=== PATIENT | female | born 1935 | race Caucasian/White ===

== ENCOUNTER → 2024-01-04 14:58 | Outpatient (REF) | payer MEDICARE, SELFPAY | LOC: RAD 14:58 | PROVIDERS: ATTENDING PHYSICIAN Internal Medicine | DX: R10.84 Generalized abdominal pain (principal) | CPT/HCPCS: 74177; Q9967 ==

== ENCOUNTER → 2024-02-05 12:49 | Outpatient (REF) | payer MEDICARE, SELFPAY | LOC: RCS 12:49 | PROVIDERS: ATTENDING PHYSICIAN Internal Medicine | DX: R55 Syncope and collapse (principal) | CPT/HCPCS: 93225; 93226 ==

== ENCOUNTER 2024-09-04 10:18 | Emergency (ER) | payer MEDICARE, SELFPAY ==
[2024-09-04 10:19] VITALS: BP 103/59
--- NOTE | 2024-09-04 10:58 | ED.GENMED ---
History of Present Illness
General
Chief Complaint: Musculo-Skeletal Complaint
Time Seen by Provider: 09/04/24 10:58
History of Present Illness
History of Present Illness:
TIME OF INITIAL ENCOUNTER: 11 AM
HPI:
The patient has been having some discomfort and rash in the left low back that radiates around the top of the left thigh over the last several months. She has seen a primary care doctor without a clear explanation. The pain worsened and she
describes a burning sensation to the thigh.
EXAM:
GENERAL: Well appearing but appears somewhat uncomfortable
HEENT: Moist oral mucosa
NEUROLOGIC: Excellent strength all extremities, no obvious coordination deficits
PSYCHIATRIC: Appropriate mental status, normal insight and judgement
EXTREMITIES: Nontender, no edema, moves all extremities equally
SKIN: Rash consistent with shingles in a left-sided L1/L2 distribution
NUMBER AND COMPLEXITY OF PROBLEMS ADDRESSED AT THE ENCOUNTER
� Chronic conditions affecting care: Denies any significant past medical history
� Acute Exacerbation and/or Progression of Chronic Illness: This is an acute problem
� Differential Diagnosis includes: Shingles, dermatitis, eczema, viral syndrome, allergies
AMOUNT AND/OR COMPLEXITY OF DATA TO BE REVIEWED AND ANALYZED
� I performed an independent evaluation of and my interpretation is:
EKG:
CT:
X-rays:
Laboratory Studies:
Other:
� Review of other/old records: The patient had Holter monitoring earlier this year
� Clinical information was obtained by an independent historian: Spoke to the at bedside
� Prescriptions/Medications Considered but not given:
� Further testing considered but not performed:
RISK OF COMPLICATIONS AND/OR MORBIDITY OR MORTALITY OF PATIENT MANAGEMENT
� Social determinants of health affecting care: Lives at home
� Discussion with other providers:
� Escalation of care including admission/observation vs risk of discharge considered: Rashes consistent with shingles. I suspect she has a postherpetic neuralgia. I informed patient Valtrex likely to be of much benefit but we
can try. Will try prednisone and Neurontin for pain.
ANY OTHER UPDATES:
Phy Exam
Physical Exam
Physical Exam:
See HPI
Course
Orders/Labs/Results
Orders:
Orders
09/04/24 10:22
Urinalysis Reflex To Culture Urgent
Date Specimen was Collected: 09/04/24
Time Specimen was Collected: 10:23
09/04/24 10:34
CMP [Comprehensive Metabolic Panel] Urgent
Complete Blood Count/With Diff Urgent
Abnormal Lab Results
09/04/24
10:34
WBC 2.6 L 10^3/uL
(4.8-10.8)
RBC 3.94 L 10^6/uL
(4.20-5.40)
MCH 31.7 H pg
(27.0-31.0)
Plt Count 123 L 10^3/uL
(130-400)
MPV 11.5 H fL
(7.4-10.4)
Absolute Neuts (auto) 1.2 L 10^3/uL
(1.4-6.5)
Absolute Lymphs (auto) 1.0 L 10^3/uL
(1.2-3.4)
Monocytes % 12.9 H %
(1.7-9.3)
BUN 21 H mg/dl
(7-17)
Glucose 101 H mg/dl
(70-99)
09/04/24 10:34
09/04/24 10:34
Vital Signs
Initial and Last Documented VS:
Initial Vital Signs
Temp Pulse Resp BP Pulse Ox
98.3 F 66 18 103/59 97
09/04/24 10:19 09/04/24 10:19 09/04/24 10:19 09/04/24 10:19 09/04/24 10:19
Last Documented Vital Signs
Temp Pulse Resp BP Pulse Ox
98.3 F 66 18 103/59 97
09/04/24 10:19 09/04/24 10:19 09/04/24 10:19 09/04/24 10:19 09/04/24 10:19
*Critical Care Note
Total Time (30-74mins, 75-104mins- exclusive of procedures): Not Applicable
ED Attending Note
-
Portions of this chart may have been created with voice recognition software.� Occasional wrong word or��sound alike� substitutions may have occurred due to the inherent limitations of voice recognition software.
Discharge Plan
Departure
Patient Disposition: Home (Routine Discharge)
Date of Disposition: 09/04/24
Time of Disposition: 11:09
Patient with high blood pressure during this ER visit?: Yes
Discharge Problem:
HZV (herpes zoster virus) post herpetic neuralgia
Instructions: Shingles
Prescriptions:
New
prednisone 20 mg tablet
20 mg PO DAILY Qty: 5 0RF
gabapentin [Neurontin] 100 mg capsule
100 mg PO TID Qty: 21 0RF
valacyclovir [Valtrex] 1 gram tablet
1,000 mg PO TID 7 Days Qty: 21 0RF
Activity Restrictions/Additional Instructions:
Your symptoms appear to be related to shingles. Shingles can take a long time to heal. We can try Valtrex (antiviral) but this likely will not help much as her symptoms have been going on for a long time. For the pain, we can try a short course
of steroids as well as Neurontin. I sent these prescriptions to your pharmacy.
Discharge Date and Time
Print Language: SETSWANA
[2024-09-04 10:59] LABS: ALT (SGPT) 20 U/L (0-35); AST (SGOT) 25 U/L (14-36); Alkaline Phosphatase 65 U/L (38-126); Blood Urea Nitrogen 21 mg/dl (7-17); Calcium 9.2 mg/dl (8.4-10.2); Carbon Dioxide 30 mmol/L (22-30); Chloride 103 mmol/L (98-107); Glucose 101 mg/dl (70-99); Potassium 4.3 mmol/L (3.5-5.1); Sodium 140 mmol/L (135-145); Total Bilirubin 0.3 mg/dl (0.2-1.3); Total Protein 6.6 g/dl (6.3-8.2); eGFR > 60.00
[2024-09-04 11:14] LABS: % Basophils 0.4 % (0-2); % Eosinophils 0.4 % (0-6); % Lymphocytes 39.2 % (20.5-51.1); % Monocytes 12.9 % (1.7-9.3); % Neutrophils 47.1 % (42.2-75.2); Absolute Monocytes 0.3 10^3/uL (0.1-0.6); Absolute Neutrophils 1.2 10^3/uL (1.4-6.5); Hematocrit 37.9 % (37.0-47.0); Hemoglobin 12.5 g/dL (12.0-16.0); Mean Corpuscular Hgb 31.7 pg (27.0-31.0); Mean Corpuscular Volume 96.2 fL (81.0-99.0); Mean Platelet Volume 11.5 fL (7.4-10.4); Nucleated Red Blood Cells % 0 %; Platelet Count 123 10^3/uL (130-400); Red Blood Cell Count 3.94 10^6/uL (4.20-5.40); Red Cell Dist. Width 12.7 % (11.5-14.5); White Blood Cell Count 2.6 10^3/uL (4.8-10.8)
== END 2024-09-04 11:26 | disposition home or self-care (01) ==
LOC: EMR 10:18
PROVIDERS: EMERGENCY PHYSICIAN Emergency Medicine; FAMILY PHYSICIAN Internal Medicine
DX: B02.9 Zoster without complications (principal); B02.29 Other postherpetic nervous system involvement; M54.50 Low back pain, unspecified; R03.0 Elevated blood-pressure reading, without diagnosis of hypertension
CPT/HCPCS: 99283; 80053; 85025

== ENCOUNTER → 2024-10-09 09:39 | Outpatient (REF) | payer MEDICARE, SELFPAY | LOC: RAD 09:39 | PROVIDERS: ATTENDING PHYSICIAN Internal Medicine | DX: R10.32 Left lower quadrant pain (principal) | CPT/HCPCS: 74177; Q9967 ==

== ENCOUNTER 2024-12-03 06:32 | Outpatient (RCR) | payer SELFPAY | END 2024-12-03 23:59 | disposition home or self-care (01) | LOC: ROT 06:32 | PROVIDERS: ATTENDING PHYSICIAN Hospitalist | DX: Z02.4 Encounter for examination for driving license (principal) ==

== ENCOUNTER 2025-03-20 09:07 | Emergency (ER) | payer OTHER, SELFPAY ==
[2025-03-20 09:08] VITALS: BP 134/69
[2025-03-20 09:25] VITALS: BMI 23.8
[2025-03-20 09:34] VITALS: BP 152/63
--- NOTE | 2025-03-20 09:36 | ED.GENMED ---
History of Present Illness
General
Chief Complaint: Bowel Problem
Source: patient
Exam Limitations: none
Time Seen by Provider: 03/20/25 09:18
Nursing documentation reviewed up to this point in time: agreed with
History of Present Illness
History of Present Illness:
Patient is a 89-year-old female who presents to the ER for evaluation. She reports for the past several months she has been constipated and has had abdominal pain. She does report that her stools have been dark. She has however used intermittent
Pepto-Bismol. She has lost approximate 20 pounds over the past several months. She still reports a good appetite. She denies any associated nausea or fevers. She denies any urinary frequency urgency or dysuria.
Review of Systems
Review of Systems
Allergies reviewed?: Yes
Other source history: family
All Other Systems: ROS reviewed and negative except as documented in HPI and ROS
Constitutional: Reports no symptoms; Denies fever
Respiratory: Reports no symptoms
Cardiac: Reports no symptoms
ABD/GI: Reports abdominal pain and constipated; Denies nausea, vomiting or diarrhea
: Reports no symptoms
Musculoskeletal: Reports no symptoms
Skin: Reports no symptoms
Neurological: Reports no symptoms
Hematologic/Lymphatic: Reports no symptoms
Psychiatric: Reports no symptoms
Phy Exam
General Physical Exam
General Presentation: no apparent distress
General age: appears stated age
General Skin: warm and dry
General Habitus: elderly
General Mental: alert
General Hydration: appears well hydrated
Cardiovascular Exam
Cardiovascular Exam: regular rate/rhythm, no murmur and normal peripheral pulses
Pulmonary Exam
Pulmonary Exam: lungs clear and no respiratory distress
Gastrointestinal Exam
Gastrointestinal Exam: non tender, soft and other (+ darker brown (greenish ) stool heme negative , no impaction of stool in the rectum ( no solid stool felt on digital rectal exam ) )
Neurological Exam
Neurological Exam: alert and oriented x3
Musculoskeletal Exam
Musculoskeletal Exam: full ROM
Skin Exam
Skin Exam: normal color and warm/dry
Psychiatric Exam
Psychiatric Exam: normal mood/affect
Course
Orders/Labs/Results
Orders:
Orders
03/20/25 09:33
IV Insert/Care/Rem.- Treatment PRN
03/20/25 09:37
Complete Blood Count/With Diff Urgent
Comprehensive Metabolic Panel Urgent
Lipase Urgent
Comment: ADD ON
03/20/25 10:36
CT Abd/pel W Iv And Oral Contr Urgent
Comment:
Reason For Exam: abd pain/constipation
Iohexol [Omnipaque] See Protocol PO NOW STA
03/20/25 10:37
Add On- LAB Urgent
Tests Added?: lipase
0.9% Sodium Chloride 500 ml [Nss] 500 ml IV BOLUS
03/20/25 11:11
UA Reflex to Culture [Urinalysis Reflex To Culture] Urgent
Date Specimen was Collected: 03/20/25
Time Specimen was Collected: 11:07
Abnormal Lab Results
03/20/25
09:37
WBC 4.7 L 10^3/uL
(4.8-10.8)
RBC 3.91 L 10^6/uL
(4.20-5.40)
MCH 31.5 H pg
(27.0-31.0)
MCHC 32.7 L g/dL
(33.0-37.0)
MPV 10.6 H fL
(7.4-10.4)
Absolute Lymphs (auto) 0.9 L 10^3/uL
(1.2-3.4)
Lymphocytes % 20.2 L %
(20.5-51.1)
Monocytes % 9.9 H %
(1.7-9.3)
Chloride 108 H mmol/L
(98-107)
Carbon Dioxide 32 H mmol/L
(22-30)
BUN 26 H mg/dl
(7-17)
Glucose 110 H mg/dl
(70-99)
03/20/25 09:37
03/20/25 09:37
Vital Signs
Initial and Last Documented VS:
Initial Vital Signs
Temp Pulse Resp BP Pulse Ox
97.6 F 61 18 134/69 95
03/20/25 09:08 03/20/25 09:08 03/20/25 09:08 03/20/25 09:08 03/20/25 09:08
Last Documented Vital Signs
Temp Pulse Resp BP Pulse Ox
97.6 F 74 16 155/65 96
03/20/25 09:08 03/20/25 14:15 03/20/25 14:15 03/20/25 14:15 03/20/25 11:01
MDM/Problems Addressed
Differential Diagnosis Includes:
Not limited to less likely GI bleed, constipation by obstruction colitis
MDM/Problems Addressed:
Patient is an [id number] complain of intermittent constipation and dark stools for the past 2 months but she however has been using Pepto-Bismol. She presents awake alert no acute distress no acute abnormalities on vital signs denies any
fevers she is afebrile with stable hemoglobin BUN minimally elevated however normal creatinine urinalysis negative. Rectal exam with no impaction small amount of brown-greenish stool but was heme-negative.
CAT scan was done and negative for acute abnormality mild diffuse colonic stool burden. Patient is very well-appearing we discussed options including MiraLAX as an outpatient patient is agreeable to this plan of care we did review diet she does eat
a lot of bananas we did discuss how this was constipating. She however is very well-appearing in no acute distress will discharge home with family with instructions to follow-up with family doctor.
*Radiology
Radiology exam reviewed: radiology read reviewed
*Critical Care Note
Total Time (30-74mins, 75-104mins- exclusive of procedures): Not Applicable
ED Attending Note
-
Portions of this chart may have been created with voice recognition software.� Occasional wrong word or��sound alike� substitutions may have occurred due to the inherent limitations of voice recognition software.
Discharge Plan
Departure
Patient Disposition: Home (Routine Discharge)
Date of Disposition: 03/20/25
Time of Disposition: 14:45
Patient with high blood pressure during this ER visit?: Yes
Condition: Fair
Covid-19: Not Applicable
Discharge Problem:
Constipation
Instructions: Constipation, Adult (DC), BLOOD PRESSURE
Prescriptions:
No Action
famotidine [Pepcid] 20 mg Tablet
20 mg PO DAILYPRN PRN (Reason: GERD)
trazodone 150 mg Tablet
75 mg PO HS
acetaminophen [Tylenol] 325 mg Tablet
650 mg PO Q6HPRN PRN (Reason: MILD PAIN)
Metamucil Packet
1 packet PO DAILY
Theragen Tablet
1 tab PO DAILY
calcium carbonate [Tums] 200 mg calcium (500 mg) Tablet,Chewable
200 mg PO BIDPRN PRN (Reason: GERD)
Referrals:
Jennifer Magdaleno, [Family Provider] -
Activity Restrictions/Additional Instructions:
As discussed your CAT scan shows mild constipation. Please start MiraLAX daily. Increase your water intake and diet high in fiber, fresh fruits and vegetables etc. Please closely follow up with your family doctor in the next several days
and return if any worsening of symptoms.
avoid bananas and constipating foods.
Interventions
Interventions:
*Risk Screen - Suicide Last Done: 03/20/25 09:08
*General Assessment Last Done: 03/20/25 09:08
*Neglect/Abuse Screening Last Done: 03/20/25 09:25
*ED- Fall Risk Assessment Last Done: 03/20/25 09:08
*ED COVID-19 Vaccine History Last Done: 03/20/25 09:08
*Nursing Disposition Last Done: 03/20/25 14:50
AW-Rqmknd-Nuwwkzlxya Assessment Last Done: 03/20/25 09:39
Discharge Date and Time
Discharge Date/Time: 03/20/25 14:51
Print Language: YAKUT
[2025-03-20 09:44] LABS: % Basophils 0.6 % (0-2); % Eosinophils 0.9 % (0-6); % Immature Granulocytes 0.2 % (0-0.5); % Lymphocytes 20.2 % (20.5-51.1); % Monocytes 9.9 % (1.7-9.3); % Neutrophils 68.2 % (42.2-75.2); Absolute Lymphocytes 0.9 10^3/uL (1.2-3.4); Absolute Monocytes 0.5 10^3/uL (0.1-0.6); Absolute Neutrophils 3.2 10^3/uL (1.4-6.5); Hematocrit 37.6 % (37.0-47.0); Hemoglobin 12.3 g/dL (12.0-16.0); Mean Corp Hgb Conc. 32.7 g/dL (33.0-37.0); Mean Corpuscular Hgb 31.5 pg (27.0-31.0); Mean Corpuscular Volume 96.2 fL (81.0-99.0); Mean Platelet Volume 10.6 fL (7.4-10.4); Nucleated Red Blood Cells % 0 %; Platelet Count 190 10^3/uL (130-400); Red Blood Cell Count 3.91 10^6/uL (4.20-5.40); Red Cell Dist. Width 13.3 % (11.5-14.5); White Blood Cell Count 4.7 10^3/uL (4.8-10.8)
[2025-03-20 10:00] VITALS: BP 155/62
[2025-03-20 10:01] LABS: ALT (SGPT) 14 U/L (0-35); AST (SGOT) 18 U/L (14-36); Albumin 3.9 g/dl (3.5-5.0); Alkaline Phosphatase 50 U/L (38-126); Blood Urea Nitrogen 26 mg/dl (7-17); Calcium 9.5 mg/dl (8.4-10.2); Carbon Dioxide 32 mmol/L (22-30); Chloride 108 mmol/L (98-107); Estimated Creatinine Clearance 35 ml/min; Glucose 110 mg/dl (70-99); Potassium 4.4 mmol/L (3.5-5.1); Sodium 142 mmol/L (135-145); Total Bilirubin 0.5 mg/dl (0.2-1.3); Total Protein 6.9 g/dl (6.3-8.2); eGFR > 60.00
[2025-03-20 11:00] VITALS: BP 150/73
[2025-03-20 11:00] LABS: Lipase 205 U/L (23-300)
[2025-03-20] MEDS: OMNIPAQUE 50 ML PO (11:08)
[2025-03-20] MEDS: NSS 500 IV (11:09)
[2025-03-20 11:31] LABS: Urine Albumin Negative (Neg - Trace); Urine Bilirubin Negative (Negative); Urine Character Clear (Clear); Urine Color Yellow; Urine Glucose Negative (Negative); Urine Ketone Negative (Negative); Urine Leukocyte Negative (Negative); Urine Nitrite Negative (Negative); Urine Occult Blood Negative (Negative); Urine Urobilinogen Negative (Neg - 1+)
[2025-03-20 12:43] VITALS: BP 166/71
[2025-03-20 14:15] VITALS: BP 155/65
== END 2025-03-20 14:51 | disposition home or self-care (01) ==
LOC: EMR 09:07
PROVIDERS: Nurse Practitioner; EMERGENCY PHYSICIAN Emergency Medicine; FAMILY PHYSICIAN Hospitalist
DX: K59.00 Constipation, unspecified (principal); R10.9 Unspecified abdominal pain
CPT/HCPCS: 99284; 96360; 74177; 80053; 81003; 83690; 85025; Q9967